=== PATIENT | female | born 1970 | race Caucasian/White ===

== ENCOUNTER → 2018-07-16 | Outpatient (CLI) | payer BC ==
[~2018-07-16] VITALS: Ht 170.2 cm; Wt 96.6 kg
[~2018-07-16] MED LIST: CENTRUM1 TA1 PO; METROGEL GEL45 GM TP; NEXIUM 40MG40 MG; VITAMIN B COMPL1 SGL PO; ZITHROMAX500 M1 IV
[2018-07-16 08:31] VITALS: BP 122/90; PULSE 60
== END ==
LOC: LIGHT
DX: E88.81 Metabolic syndrome and other insulin resistance (principal); R73.01 Impaired fasting glucose; K21.9 Gastro-esophageal reflux disease without esophagitis; E66.9 Obesity, unspecified; Z68.33 Body mass index [BMI] 33.0-33.9, adult; Z71.3 Dietary counseling and surveillance